=== PATIENT | male | born 1975 | race Caucasian/White ===

== ENCOUNTER 2017-10-03 15:10 | Inpatient (IN) | payer MEDICARE, MEDICAID ==
[~2017-10-03] VITALS: Ht 180.3 cm; Wt 73.9 kg
[~2017-10-03 15:10] MED LIST: ARIP10TA8 PO; DOXY100C PO
[2017-10-03] MEDS ORDERED: MIRT15 PO (16:13)
[2017-10-03] MEDS ORDERED: BECL8.7A6 IH (16:13)
[2017-10-03 18:19] LABS: BASOPHILS % (AUTO) 0.5 % (0.0-2.0); EOSINOPHILS % (AUTO) 11.6 % (1.0-6.0); HEMOGLOBIN 11.6 g/dL (13.5-17.5); LYMPHOCYTES # (AUTO) 1.4 K/uL (1.0-4.8); LYMPHOCYTES % (AUTO) 18.3 % (22.0-44.0); MEAN CORPUSCULAR VOLUME 88 fL (80-100); MONOCYTES # (AUTO) 0.7 K/uL (0.1-1.0); NEUTROPHILS # (AUTO) 4.5 K/uL (1.8-7.7); NEUTROPHILS % (AUTO) 60.6 % (40.0-70.0); PLATELET COUNT (AUTO) 237 K/uL (150-450); RED BLOOD CELL COUNT(AUTO) 3.85 MIL/uL (4.50-5.90); RED CELL DISTRIBUTION WIDTH 14.6 % (11.5-14.5)
[2017-10-03 18:24] LABS: ANION GAP 9 mmol/L (8-16); CALCIUM, TOTAL 8.1 mg/dL (8.8-10.5); CARBON DIOXIDE 25 mmol/L (22-29); CHLORIDE 107 mmol/L (98-107); CREATININE 0.62 mg/dL (0.60-1.30); GLOMERULAR FILTR. RATE CALC > 60 mL/min (>60); GLUCOSE,RANDOM 94 mg/dL (70-110); POTASSIUM 3.8 mmol/L (3.5-5.1); SODIUM SERUM 141 mmol/L (136-145); UREA NITROGEN, BLOOD 13 mg/dL (7-18)
[2017-10-03 18:31] LABS: ALANINE AMINOTRANSFERASE 37 U/L (12-78); ALBUMIN 3.3 g/dL (3.4-5.0); ALKALINE PHOSPHATASE 62 U/L (46-116); ASPARTATE AMINOTRANSFERASE 48 U/L (15-37); BILIRUBIN,TOTAL 0.9 mg/dL (0.1-1.0); TOTAL PROTEIN, SERUM 6.3 g/dL (6.4-8.2)
[2017-10-03] MEDS ORDERED: LORazepam 2 MG/ML VIAL IM ONE (18:45)
[2017-10-03] MEDS ORDERED: DiphenhydrAMINE HCL 50 MG/ML VIAL IM ONE (18:45)
[2017-10-03] MEDS ORDERED: HALOPERIDOL LACTATE 5 MG/ML VIAL IM ONE (18:45)
[2017-10-03 19:22] LABS: AMPHET/METH SCREEN,URINE POSITIVE (NEGATIVE); BARBITURATE SCREEN, URINE NEGATIVE (NEGATIVE); BENZODIAZEPINES SCREEN,URINE NEGATIVE (NEGATIVE); CANNABINOID SCREEN,URINE NEGATIVE (NEGATIVE); COCAINE SCREEN,URINE NEGATIVE (NEGATIVE); METHADONE SCREEN, URINE NEGATIVE (NEGATIVE); OPIATE SCREEN,URINE NEGATIVE (NEGATIVE); PHENCYCLIDINE SCREEN,URINE NEGATIVE (NEGATIVE)
[2017-10-03] MEDS ORDERED: HALOPERIDOL 5 MG TABLET PO PRN (21:00)
[2017-10-03] MEDS ORDERED: LORazepam 2 MG TABLET PO PRN (21:00)
[2017-10-03] MEDS ORDERED: ZOLPIDEM TARTRATE 10 MG TABLET PO PRN (21:00)
[2017-10-03 23:34] VITALS: BP 122/81
[2017-10-04 00:50] VITALS: BP 118/71
[2017-10-04] MEDS ORDERED: INFLUENZA VIRUS VACCINE QVS 2017-18 (3YR+)/PF 60 MCG/0.5 ML SYRINGE IM ONE (02:00)
[2017-10-04 05:49] LABS: CHOLESTEROL 141 mg/dL (131-200); HDL CHOLESTEROL 69 mg/dL (40-60); LDL CHOL (CALC.) 64 mg/dL (0-130); TRIGLYCERIDES 42 mg/dL (15-150)
[2017-10-04] MEDS ORDERED: PERMETHRIN 5% 60 GM CREAM TP ONE (07:15)
[2017-10-04] MEDS ORDERED: MAGNESIUM HYDROXIDE SUSPENSION 30 ML UDCUP PO PRN (09:45)
[2017-10-04] MEDS ORDERED: CloNIDine HCL 0.1 MG TABLET PO PRN (09:45)
[2017-10-04] MEDS ORDERED: ACETAMINOPHEN 325 MG TABLET PO PRN (09:45)
[2017-10-04] MEDS ORDERED: PETROLATUM,WHITE 71 GM JELLY TP PRN (09:45)
[2017-10-04] MEDS ORDERED: BENZOCAINE/MENTHOL LOZENGE MM PRN (09:45)
[2017-10-04] MEDS ORDERED: MAG HYDROX/AL HYDROX/SIMETH ES 30 ML SUSPENSION UDCUP PO PRN (09:45)
[2017-10-04] MEDS ORDERED: ALBUTEROL SULFATE HFA 90 MCG/PUFF 8 GM INHALER IH PRN (09:45)
[2017-10-04] MEDS ORDERED: IBUPROFEN 600 MG TABLET PO PRN (09:45)
[2017-10-04] MEDS ORDERED: BACITRACIN 28.4 GM OINTMENT TP PRN (09:45)
[2017-10-04] MEDS ORDERED: ONDANSETRON HCL 4 MG TABLET PO PRN (09:45)
[2017-10-04] MEDS ORDERED: LOPERAMIDE HCL 2 MG CAPSULE PO PRN (09:45)
[2017-10-04] MEDS: ARIPiprazole 10 MG TABLET PO SCH (10:13)
[2017-10-04 16:07] VITALS: BP 122/75
[2017-10-04] MEDS: HYDROCORTISONE 0.5% 30 GM CREAM TP SCH (16:44)
[2017-10-04] MEDS: MIRTAZAPINE 15 MG TABLET PO SCH (20:31)
[2017-10-05 06:11] VITALS: BP 121/62
[2017-10-05] MEDS: ARIPiprazole 10 MG TABLET PO SCH (08:24)
[2017-10-05] MEDS: HYDROCORTISONE 0.5% 30 GM CREAM TP SCH ×2 (08:25→16:06)
[2017-10-05 08:27] VITALS: BP 115/64
[2017-10-05 16:10] VITALS: BP 110/86
[2017-10-05] MEDS ORDERED: TRIAMCINOLONE 0.1% 15 GM OINTMENT TP PRN (19:15)
[2017-10-05] MEDS: MIRTAZAPINE 15 MG TABLET PO SCH (20:06)
[2017-10-06 05:34] VITALS: BP 128/89
[2017-10-06 08:16] VITALS: BP 127/73
[2017-10-06] MEDS: ARIPiprazole 10 MG TABLET PO SCH (08:17)
[2017-10-06] MEDS: HYDROCORTISONE 0.5% 30 GM CREAM TP SCH ×2 (09:17→16:05)
[2017-10-06 16:28] VITALS: BP 120/69
[2017-10-06] MEDS: MIRTAZAPINE 15 MG TABLET PO SCH (20:41)
[2017-10-07 01:30] VITALS: BP 124/75
[2017-10-07 08:23] VITALS: BP 128/90
[2017-10-07] MEDS: HYDROCORTISONE 0.5% 30 GM CREAM TP SCH (08:35)
[2017-10-07] MEDS: ARIPiprazole 10 MG TABLET PO SCH (08:35)
[2017-10-07] MEDS ORDERED: ARIP10TA8 PO (10:10)
[2017-10-07] MEDS ORDERED: MIRT15 PO (10:10)
== END 2017-10-07 13:20 | disposition home or self-care (01) | DRG 885 ==
LOC: EMS 15:15 → B2S 20:30
DX: F20.0 Paranoid schizophrenia (principal); E46 Unspecified protein-calorie malnutrition; R45.851 Suicidal ideations; E83.51 Hypocalcemia; F15.10 Other stimulant abuse, uncomplicated; G47.00 Insomnia, unspecified; L30.9 Dermatitis, unspecified; R03.0 Elevated blood-pressure reading, without diagnosis of hypertension; R21 Rash and other nonspecific skin eruption; F17.210 Nicotine dependence, cigarettes, uncomplicated; D64.9 Anemia, unspecified; Z68.22 Body mass index [BMI] 22.0-22.9, adult; Z71.51 Drug abuse counseling and surveillance of drug abuser; Z71.6 Tobacco abuse counseling; Z79.899 Other long term (current) drug therapy
CPT/HCPCS: 90471; 96372; 99291; G0480; J1200; J1630; J2060

== ENCOUNTER 2021-01-23 13:53 | Emergency (ER) | payer MEDICARE, OTHER ==
[~2021-01-23] VITALS: Ht 188 cm; Wt 90.9 kg
[~2021-01-23 13:53] MED LIST changes: +ARIP10TA38 PO; -ARIP10TA8 PO; -DOXY100C PO; +MIRT-89 PO
[2021-01-23 14:56] LABS: APPEARANCE,URINE CLOUDY (CLEAR); GLUCOSE, URINE (UA) NEGATIVE (NEGATIVE); KETONES,URINE 40 mg/dL (NEGATIVE); LEUKOCYTE ESTERASE ,URINE NEGATIVE (NEGATIVE); NITRATE,URINE NEGATIVE (NEGATIVE); OCCULT BLOOD,URINE MODERATE (NEGATIVE); PROTEIN,URINE SEE CONFIRM (NEGATIVE); UROBILINOGEN,URINE 0.2 mg/dL (<=1.0)
[2021-01-23 15:01] LABS: AMPHET/METH SCREEN,URINE POSITIVE (NEGATIVE); BARBITURATE SCREEN, URINE NEGATIVE (NEGATIVE); BENZODIAZEPINES SCREEN,URINE NEGATIVE (NEGATIVE); CANNABINOID SCREEN,URINE NEGATIVE (NEGATIVE); COCAINE SCREEN,URINE NEGATIVE (NEGATIVE); METHADONE SCREEN, URINE NEGATIVE (NEGATIVE); OPIATE SCREEN,URINE NEGATIVE (NEGATIVE)
[2021-01-23 15:07] LABS: BILIRUBIN,URINE PRELIM. POSITIVE (NEGATIVE)
[2021-01-23 15:08] LABS: BASOPHILS % (AUTO) 0.7 % (0.0-2.0); EOSINOPHILS % (AUTO) 0.1 % (1.0-6.0); HEMATOCRIT 39.6 % (41-53); HEMOGLOBIN 13.2 g/dL (13.5-17.5); LYMPHOCYTES # (AUTO) 1.3 K/uL (1.0-4.8); LYMPHOCYTES % (AUTO) 10.6 % (22.0-44.0); MEAN CORPUSCULAR HEMOGLOBIN 30.2 pg (26.0-34.0); MEAN CORPUSCULAR HGB CONC 33.3 G/dL (31.0-37.0); MEAN CORPUSCULAR VOLUME 91 fL (80-100); MONOCYTES # (AUTO) 1.6 K/uL (0.1-1.0); MONOCYTES % (AUTO) 12.8 % (2.0-9.0); NEUTROPHILS # (AUTO) 9.7 K/uL (1.8-7.7); NEUTROPHILS % (AUTO) 75.8 % (40.0-70.0); PLATELET COUNT (AUTO) 254 K/uL (150-450); RED BLOOD CELL COUNT(AUTO) 4.36 MIL/uL (4.50-5.90); RED CELL DISTRIBUTION WIDTH 13.7 % (11.5-14.5)
[2021-01-23 15:11] LABS: PHENCYCLIDINE SCREEN,URINE NEGATIVE (NEGATIVE)
[2021-01-23 15:16] LABS: SULFOSALICYLIC ACID,URINE 2+ (Negative); WBC,URINE 0-2 /HPF (0-5)
[2021-01-23 15:17] LABS: BACTERIA,URINE Few /HPF (None Seen); SQUAMOUS EPITHELIAL CELL,UR Rare /LPF (None Seen)
[2021-01-23 15:28] LABS: ANION GAP 13 mmol/L (8-16); CALCIUM, TOTAL 8.8 mg/dL (8.8-10.5); CARBON DIOXIDE 20 mmol/L (22-29); CHLORIDE 105 mmol/L (98-107); CREATININE 1.41 mg/dL (0.60-1.30); GLOMERULAR FILTR. RATE CALC 55 mL/min (>60); GLUCOSE,RANDOM 101 mg/dL (70-110); POTASSIUM 3.1 mmol/L (3.5-5.1); SODIUM SERUM 138 mmol/L (136-145); UREA NITROGEN, BLOOD 34 mg/dL (7-18)
[2021-01-23] MEDS ORDERED: POTASSIUM CHLORIDE 20 MEQ ER TABLET PO ONE (16:00)
[2021-01-23 16:03] LABS: ALANINE AMINOTRANSFERASE 118 U/L (12-78); ALBUMIN 3.9 g/dL (3.4-5.0); ALKALINE PHOSPHATASE 66 U/L (46-116); ASPARTATE AMINOTRANSFERASE 209 U/L (15-37); BILIRUBIN,TOTAL 3.1 mg/dL (0.1-1.0); CREATINE KINASE, TOTAL ONLY 6629 U/L (39-308); TOTAL PROTEIN, SERUM 7.2 g/dL (6.4-8.2)
[2021-01-23] MEDS ORDERED: SODIUM CHLORIDE 0.9% 1,000 ML IV ONE ×2 (16:15→17:30)
[2021-01-23 18:07] VITALS: BP 131/81
== END 2021-01-23 18:50 | disposition home or self-care (01) ==
LOC: EMS 14:12
DX: M62.82 Rhabdomyolysis (principal)
CPT/HCPCS: 36415; 71045; 80053; 80307; 81001; 82550; 84484; 85025; 93005; 99285; G0480; J7030; 81002